=== PATIENT | male | born 1970 | race Two or more races ===

== ENCOUNTER 2025-02-15 08:39 | Emergency (ER) | payer MEDICAID, SELFPAY ==
[2025-02-15 08:49] VITALS: BP 150/91; PULSE 113; RESP 18; TEMP 38.1; O2SAT 98; BMI 47.5
--- NOTE | 2025-02-15 08:54 | XR_ITS ---
Examination: PA lateral chest 2 views TECHNIQUE: Upright PA lateral chest 2 views Date and time: February 15, 2025 0937 hours Comparison November 03, 2009 INDICATIONS: Chest pain shortness of breath coughing fever beginning one week ago. FINDINGS: Significant left upper lobe pneumonia. Normal heart size. Right lung clear IMPRESSION: Significant left upper lobe pneumonia
--- NOTE | 2025-02-15 08:54 | PD.EDSOB ---
ED SOB =RME/HPI General Chief Complaint: Shortness of Breath/Dyspnea Stated Complaint: SOB, fever, [place] x 9 days Time Seen by Provider: 02/15/25 08:45 Source: patient Arrival date/time: 02/15/25 08:39 54-year-old male with a history of hypertension presents to the emergency room with a chief complaint of shortness of breath, fevers, headaches x 9 days. Mode of arrival: ambulatory Limitations: no limitations Related Data Previous Rx's ?Medication ?Instructions ?Recorded amlodipine 5 mg tablet 10 mg (2 x 5 mg) PO QDAY #30 tabs 02/23/21 amoxicillin 500 mg-potassium 500 mg PO TID #5 tabs 02/23/21 clavulanate 125 mg tablet lisinopril 20 mg tablet 20 mg PO QDAY #30 tabs 02/23/21 meclizine 25 mg tablet 25 mg PO TID PRN Vertigo #12 tabs 02/23/21 acetaminophen 325 mg capsule 650 mg (2 x 325 mg) PO QID PRN 02/15/25 fever or pain 7 days #30 caps albuterol sulfate 90 mcg/actuation 2 puff inhalation Q6H PRN 02/15/25 aerosol inhaler (Ventolin HFA) shortness of breath or wheezing #6.7 grams amoxicillin 875 mg-potassium 1 tab PO BID 7 days #14 tabs 02/15/25 clavulanate 125 mg tablet Allergies Allergy/AdvReac Type Severity Reaction Status Date / Time No Known Drug Allergies Allergy Verified 02/15/25 08:44 Review of Systems Review of Systems Systems Reviewed: All systems reviewed, normal except as documented Constitutional Constitutional: Reports system reviewed and no additional complaints, except as documented, Denies fatigue, Denies fever(s), Reports headache(s) and Denies weakness Eyes Eyes: Reports system reviewed and no additional complaints, except as documented, Denies blurry vision and Denies change in vision ENT Ears, Nose, Mouth, and Throat: Reports system reviewed and no additional complaints, except as documented, Denies otalgia, Reports headache(s), Denies nasal congestion, Denies throat swelling and Denies vertigo Cardiovascular Cardiovascular: Reports system reviewed and no additional complaints, except as documented, Denies chest pain, Reports dyspnea and Denies dyspnea on exertion Respiratory Respiratory: Reports system reviewed and no additional complaints, except as documented, Reports chest congestion, Reports cough, Reports dyspnea, Denies dyspnea on exertion and Reports wheezing Gastrointestinal Gastrointestinal: Reports system reviewed and no additional complaints, except as documented, Denies abdominal pain, Denies cramping, Denies nausea and Denies vomiting Genitourinary Genitourinary: Reports system reviewed and no additional complaints, except as documented, Denies dysuria and Denies hematuria Musculoskeletal Musculoskeletal: Reports system reviewed and no additional complaints, except as documented and Denies back pain Integumentary/Breasts Skin/Breast: Reports system reviewed and no additional complaints, except as documented and Denies wounds Neurologic Neurologic: Reports system reviewed and no additional complaints, except as documented, Denies confusion, Reports headache(s), Denies lack of coordination, Denies vertigo and Denies weakness Psychiatric Psychiatric: Reports system reviewed and no additional complaints, except as documented, Denies anxiety, Denies confusion, Denies depression, Denies paranoia, Denies suicidal ideation and Denies tactile hallucinations Endocrine Endocrine: Reports system reviewed and no additional complaints, except as documented and Denies fatigue Hematologic/Lymphatic Hematologic/Lymphatic: Reports system reviewed and no additional complaints, except as documented and Denies lymphadenopathy Allergic/Immunologic Allergic/Immunologic: Reports system reviewed and no additional complaints, except as documented, Denies throat swelling, Denies urticaria and Reports wheezing ED Exam General Limitations: Present no limitations General appearance: Present alert and in no apparent distress Head Head exam: Present atraumatic Eye Eye exam: Present normal appearance, PERRL and EOMI ENT ENT exam: Present normal exam, normal oropharynx and mucous membranes moist Neck Neck exam: Present normal inspection, full ROM and trachea midline Chest Chest inspection: Present normal inspection and symmetric chest wall rise Respiratory Respiratory exam: Present normal lung sounds bilaterally and wheezes; Absent respiratory distress, stridor, accessory muscle use or prolonged expiratory phase Expanded Respiratory Exam Location: Left: wheezes and Upper: wheezes Cardiovascular Cardiovascular exam: Present regular rate, normal rhythm and normal heart sounds Abdominal Exam Abdominal exam: Present soft and normal bowel sounds Extremities Exam Extremities exam: Present normal inspection and full ROM Back Exam Back exam: Present normal inspection and full ROM Neurological Exam Neurological exam: Present alert, oriented X3 and CN II-XII intact Psychiatric Psychiatric exam: Present normal affect and normal mood Skin Skin exam: Present warm, dry, intact and normal color Course Quality Measures none Orders Category Date Time Status Bedside COVID-19 Antigen Test NOW Care 02/15/25 08:54 Active Bedside Influenza A&B Antigen Test NOW Care 02/15/25 08:54 Completed XR chest 2V Stat Exams 02/15/25 08:54 Completed Acetaminophen Tab [Tylenol ES Tab] Med 02/15/25 08:54 Discontinued 1,000 mg PO X1 ONE Albuterol/Ipratr Rt Ileana [Duoneb Rt Ileana] Med 02/15/25 08:54 Discontinued 3 ml INH X1 ONE Dexamethasone Inj [Decadron Inj] Med 02/15/25 08:54 Discontinued 10 mg PO X1 ONE Vital Signs Vital signs: Vital Signs Temperature 100.5 F H 02/15/25 08:49 Pulse Rate 113 H 02/15/25 08:49 Respiratory Rate 18 02/15/25 08:49 Blood Pressure 150/91 H 02/15/25 08:49 Pulse Oximetry (%) 98 02/15/25 08:49 Oxygen Delivery Method Room Air 02/15/25 08:49 Shortness of Breath / Dyspnea MDM Narrative MDM Narrative:: 54-year-old male with a history of hypertension presents to the emergency room with a chief complaint of shortness of breath, fevers, headaches x 9 days. Patient is febrile and tachycardic. Antipyretics were given with significant improvement to his symptoms before discharge Physical examination shows wheezing to the left upper lobe. Patient's O2 saturation is 98% on room air Chest x-ray shows significant pneumonia to the left base. Antibiotics were sent to the patient's pharmacy Patient was discharged and educated to follow-up with primary care provider in the next 24 to 48 hours and return to the emergency room for any evidence of worsening signs or symptoms Patient data External records reviewed:: [facility] previous records Clinical information provided by:: patient Social determinants that could affect healthcare access:: none Patient has the following chronic illnesses:: Hypertension How is presenting disease/condition affected by chronic disease/condition?: uneffected by Evaluation data The following diagnostics were reviewed and interpreted by me:: lab results and radiology exam(s) Lab and/or radiology exams considered but not ordered:: Labs and radiology exams considered and ordered Interpretation Summary: Chest [id number]: Significant left upper lobe pneumonia. Normal heart size. Right lung clear IMPRESSION: Significant left upper lobe pneumonia Medications / Prescriptions Medications or Prescriptions considered but not ordered:: Medication given Medication administrations:: Medication Administration History Discontinued Medications Acetaminophen (Acetaminophen 500 Mg Tablet) 1,000 mg PO X1 ONE Stop: 02/15/25 08:55 Last Admin: 02/15/25 09:16 Dose: 1,000 mg Documented By: EF Albuterol/Ipratropium (Albuterol/Ipratropium (Duoneb) Rt Ileana 3 Ml Nebu) 3 ml INH X1 ONE Stop: 02/15/25 08:55 Last Admin: 02/15/25 09:07 Dose: 3 ml Documented By: LEEANN Dexamethasone Sodium Phosphate (Dexamethasone Sod Phos Inj 10 Mg/Ml Vial) 10 mg PO X1 ONE Stop: 02/15/25 08:55 Last Admin: 02/15/25 09:16 Dose: 10 mg Documented By: EF Comments: po admin Medication given Consultations Consultation(s) initiated? (list below): No Diagnosis Shortness of Breath Differential Diagnosis: acute exacerbation of chronic obstructive airways disease, congestive heart failure, community acquired pneumonia, asthma with exacerbation and pulmonary embolism Most likely diagnosis given after review of the tests above:: Community-acquired pneumonia Admission Indicated Admission indicated?: not indicated Admission Request Was there a request for admission?: No Disposition Plan Disposition Plan: Discharge Discharge Attestation Discharge Attestation: The patient and all family members were given an opportunity to ask questions and understood the discharge instructions. Discharge instructions specifically effects, indications for sooner follow up or return to the emergency department, and the expected course of current diagnosis. Patient condition: Stable Discharge Plan Plan Patient Disposition: HOME (Self Care) Discharge Disposition comment: Stable Prescriptions/Referrals Prescriptions/Med Rec: New albuterol sulfate [Ventolin HFA] 90 mcg/actuation HFA aerosol inhaler 2 puff inhalation Q6H PRN (Reason: shortness of breath or wheezing) Qty: 6.7 0RF amoxicillin-pot clavulanate 875-125 mg tablet 1 tab PO BID 7 Days Qty: 14 0RF acetaminophen 325 mg capsule 650 mg PO QID PRN (Reason: fever or pain) 7 Days Qty: 30 0RF No Action amlodipine 5 mg Tablet 10 mg PO QDAY Qty: 30 0RF lisinopril 20 mg Tablet 20 mg PO QDAY Qty: 30 0RF meclizine 25 mg Tablet 25 mg PO TID PRN (Reason: Vertigo) Qty: 12 0RF amoxicillin-pot clavulanate 500-125 mg Tablet 500 mg PO TID Qty: 5 0RF Referrals: Ori Philippe MD [Primary Care Provider] - In 1 week Problem List Clinical Impression: Community acquired pneumonia Patient/Caregiver Discharge Instructions Education Materials: What Is Pneumonia?, Treating Pneumonia, ED Pneumonia (Adult) Additional Instructions: Por favor, consulte con schultz m?dico de cabecera en las pr?ximas 24 a 48 horas. Schultz radiograf?a de t?rax mostr? milo neumon?a significativa del lado galen. Se enviaron antibi?ticos a schultz farmacia; rec?jalos y t?melos seg?n lo indicado. Si observa cualquier signo de empeoramiento de los signos o s?ntomas, acuda a urgencias de inmediato. Print Language: Welsh Stand Alone Forms: Carisa Award Info., Patient Portal Info Letter PA/INDUSTRIAL MACHINE SYSTEM TECHNICIAN Supervising Physician PA/INDUSTRIAL MACHINE SYSTEM TECHNICIAN Supervising Physician: Dr. Malone
[2025-02-15] MEDS: ALBUTEROL/IPRATROPIUM (Duoneb) RT SOL 3 ML NEBU INH (09:07)
[2025-02-15 09:09] VITALS: PULSE 85; RESP 20; O2SAT 99
[2025-02-15 09:16] VITALS: TEMP 38.1
[2025-02-15] MEDS: DEXAMETHASONE SOD PHOS INJ 10 MG/ML VIAL PO (09:16)
[2025-02-15] MEDS: ACETAMINOPHEN 500 MG TABLET 1000 MG PO (09:16)
[2025-02-15 10:16] VITALS: TEMP 37.3
[2025-02-15 10:46] VITALS: BP 114/76; PULSE 99; RESP 16; TEMP 37.2; O2SAT 96
== END 2025-02-15 10:47 | disposition home or self-care (01) ==
PROVIDERS: Emergency Provider Emergency Medicine; PCP Family Medicine
DX: J18.9 Pneumonia, unspecified organism (principal)
CPT/HCPCS: 71046; 87400; 87811; 94640; 99283; A9270; J1100